=== PATIENT | female | born 1995 | race African-American/Black ===

== ENCOUNTER 2016-08-31 10:17 | Inpatient (IN) | payer MEDICAID ==
[~2016-08-31] VITALS: Ht 160 cm; Wt 63.5 kg
[2016-08-31] MEDS ORDERED: PREN-88 PO (10:25)
[2016-08-31] MEDS ORDERED: LACTATED RINGERS 1,000 ML IV SCH (10:56)
[2016-08-31] MEDS ORDERED: DEXT 5%/LR + PITOCIN 20UNITS/L 1,000 ML IV SCH ×2 (10:56→11:53)
[2016-08-31] MEDS ORDERED: METHYLERGONOVINE MALEATE 0.2 MG/ML IM PRN ×2 (11:00→12:00)
[2016-08-31] MEDS ORDERED: MISOPROSTOL 100MCG TABLET VG PRN (11:00)
[2016-08-31] MEDS ORDERED: NALOXONE HCL 0.4 MG/ML 1ML VIAL IM PRN (11:00)
[2016-08-31] MEDS ORDERED: BUTORPHANOL TARTRATE 2 MG/ML VIAL IV PRN (11:00)
[2016-08-31] MEDS ORDERED: LIDOCAINE HCL 1% 20ML VIAL (Pyxis) INJ INFIL SCH (11:00)
[2016-08-31] MEDS ORDERED: PENICILLIN G POTASSIUM 5 MMU in DEXT 5% WATER 100 ML IV NR (11:30)
[2016-08-31] MEDS ORDERED: HEMORRHOIDAL SUPP PR PRN (12:00)
[2016-08-31] MEDS ORDERED: IBUPROFEN 800MG TABLET PO PRN (12:00)
[2016-08-31] MEDS ORDERED: LANOLIN OINT 0.25 GM TUBE TOP PRN (12:00)
[2016-08-31] MEDS ORDERED: ACETAMINOPHEN WITH CODEINE 300/30MG TABLET PO PRN (12:00)
[2016-08-31] MEDS ORDERED: BENZOCAINE/LANOLIN/ALOE VERA SPRAY TOP PRN (12:00)
[2016-08-31 12:16] LABS: BASOPHILS % 0.4 % (0.0-2.0); EOSINOPHILS % 0.4 % (0.0-5.0); HEMATOCRIT. 30.1 % (36.0-48.0); HEMOGLOBIN. 9.7 g/dL (12.0-16.0); LYMPHOCYTES % 18.9 % (20.0-50.0); MEAN CORPUSCULAR HEMOGLOBIN 27.9 pg (28.0-32.0); MEAN CORPUSCULAR VOLUME 86.2 fL (81.0-99.0); MEAN PLATELET VOLUME 10.5 fl (7.4-10.4); MONOCYTES % 7.3 % (2.0-8.0); PLATELET 227 x1000/uL (130-400); RED BLOOD CELL COUNT 3.49 mill/uL (4.2-5.4); RED CELL DISTRIBUTION WIDTH 15.7 % (11.6-14.6)
[2016-08-31 12:19] LABS: CLARITY URINE CLOUDY (CLEAR); COLOR URINE YELLOW (YELLOW); GLUCOSE URINE NEGATIVE (NEGATIVE); KETONES URINE 1+ (NEGATIVE); LEUKOCYTE ESTERASE URINE TRACE (NEGATIVE); NITRITE URINE NEGATIVE (NEGATIVE); OCCULT BLOOD URINE NEGATIVE (NEGATIVE); PH URINE 6.5 (4.5-8.0); PROTEIN URINE TRACE (NEGATIVE); SPECIFIC GRAVITY URINE 1.021 (1.005-1.030)
[2016-08-31 12:22] LABS: PARTIAL THROMBOPLASTIN TIME 26.9 sec (24.0-34.0); PROTHROMBIN TIME 10.7 sec
[2016-08-31 12:51] LABS: CARBON DIOXIDE 22 mEq/L (21-32); CHLORIDE 106 mEq/L (98-107)
[2016-08-31 13:14] LABS: *AMPHETAMINES SCREEN URINE NEGATIVE (NEGATIVE); *BARBITURATES SCREEN URINE NEGATIVE (NEGATIVE); *BENZODIAZEPINES SCREEN URINE NEGATIVE (NEGATIVE); *COCAINE SCREEN URINE NEGATIVE (NEGATIVE); METHADONE URINE SCREEN NEGATIVE (NEGATIVE); OPIATES URINE SCREEN NEGATIVE (NEGATIVE); PHENCYCLIDINE URINE SCREEN NEGATIVE (NEGATIVE)
[2016-08-31 13:25] LABS: CANNABINOID URINE SCREEN PRESUMTIVE POSITIVE (NEGATIVE)
[2016-08-31 13:28] LABS: HEPATITIS B SURFACE ANTIGEN NEGATIVE; RUBELLA IGG 192.5 IU/mL (4.99-10)
[2016-08-31 13:30] VITALS: BP 106/69
[2016-08-31 14:00] VITALS: BP 112/60
[2016-08-31] MEDS ORDERED: PENICILLIN G POTASSIUM 2.5 MMU in DEXTROSE 5% WATER 50 ML IV SCH (16:00)
[2016-08-31 20:00] VITALS: BP 106/45
[2016-08-31] MEDS: SIMETHICONE 80MG TABLET CHEW PO SCH (20:59)
[2016-09-01 04:00] VITALS: BP 106/71
[2016-09-01 07:00] LABS: BASOPHILS % 0.5 % (0.0-2.0); EOSINOPHILS % 0.4 % (0.0-5.0); HEMATOCRIT. 26.3 % (36.0-48.0); HEMOGLOBIN. 8.5 g/dL (12.0-16.0); LYMPHOCYTES % 26.4 % (20.0-50.0); MEAN CORPUSCULAR HEMOGLOBIN 27.9 pg (28.0-32.0); MEAN CORPUSCULAR VOLUME 86.8 fL (81.0-99.0); MEAN PLATELET VOLUME 10.7 fl (7.4-10.4); MONOCYTES % 7.5 % (2.0-8.0); NEUTROPHILS % 65.2 % (40.0-76.0); PLATELET 183 x1000/uL (130-400); RED BLOOD CELL COUNT 3.03 mill/uL (4.2-5.4); RED CELL DISTRIBUTION WIDTH 15.4 % (11.6-14.6)
[2016-09-01 07:41] VITALS: BP 106/50
[2016-09-01] MEDS ORDERED: PRENATAL VIT/FE FUMARATE/FA TABLET PO SCH (09:00)
[2016-09-01] MEDS: SIMETHICONE 80MG TABLET CHEW PO SCH ×2 (09:09→12:30)
[2016-09-01] MEDS ORDERED: POTASSIUM CHLORIDE 20MEQ TABLET SR PO NR (16:00)
[2016-09-01 16:01] VITALS: BP 95/51
[2016-09-01 19:45] VITALS: BP 102/62
[2016-09-08 04:11] LABS: CANNABINOID CONFIRMATION URINE Positive (.)
== END 2016-09-01 19:50 | disposition home or self-care (01) | DRG 560 ==
LOC: OBSVTOIN 10:17 → L&D 10:17 → 7EST PP/OB 13:27
PROVIDERS: ADMIT Obstetrics & Gynecology; ATTEND Obstetrics & Gynecology
PROC: 10E0XZZ Delivery of Products of Conception, External Approach (ICD-10-PCS; 2016-08-31)
PROC: 0HQ9XZZ Repair Perineum Skin, External Approach (ICD-10-PCS; principal; 2016-08-31 13:00)
DX: O60.14X0 Preterm labor third trimester with preterm delivery third trimester, not applicable or unspecified (principal); O71.4 Obstetric high vaginal laceration alone; Z53.21 Procedure and treatment not carried out due to patient leaving prior to being seen by health care provider; O62.3 Precipitate labor; Z37.0 Single live birth; Z3A.36 36 weeks gestation of pregnancy
CPT/HCPCS: 36415; 80053; 80305; 80349; 81001; 84132; 85025; 85610; 85730; 86592; 86703; 86762; 86850; 86870; 86900; 87340; J2540; J2590; J3490; J7060; J7120